=== PATIENT | female | born 1940 | race Caucasian/White ===

== ENCOUNTER 2021-09-06 16:43 | Emergency (ER) | payer MEDICARE, MEDICAID, SELFPAY ==
[2021-09-06 16:44] VITALS: BP 163/69; PULSE 87; RESP 20; TEMP 36.6; O2SAT 97; BMI 35.4
--- NOTE | 2021-09-06 17:59 | RAD_ITS ---
STUDY: XR Knee Complete 4 Views or More 09/06/2021 6:55 PM REASON FOR EXAM: Female, 80 years old. PAIN TECHNIQUE: XR Knee Complete 4 Views or More COMPARISON: None. FINDINGS: Total right knee arthroplasty. Normal visualized proximal tibia and fibula. Normal proximal tibiofibular articulation. Normal medial femorotibial compartment. Normal lateral femorotibial compartment. Normal patellofemoral articulation. The soft tissue structures are unremarkable. RAD/Knee 4 or More Views IMPRESSION: There are no acute findings. Electronically Signed: Tom Junior MD at 18:57 EST , Service support ,
--- NOTE | 2021-09-06 18:02 | EX.ED.DYSGE1 ---
HPI History of Present Illness Chief Complaint: Other, Pain/Inj Detail of Chief Complaint: Right knee pain Informant: patient Narrative Narrative: Patient presents to the emergency department with right knee pain that started 3 days ago. Patient denies any trauma. Patient states pain worse when trying to stand. Patient states that she had her knee replaced about 4 5 years ago. She denies fever or chills or sweats. Patient went to urgent care and the physician there was concerned about a septic joint so referred her to the emergency department. Patient denies any cuts to her skin or recent illness. No history of gout. Prior similar symptoms: No PFSH PFSH Medical History (Updated 09/06/21 @ 20:[address] 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 Social History Smoking Status: Former smoker ROS ROS ED Constitutional Constitutional ED: Reports systems reviewed and no addt'l complaints, except as documented; Denies body ache(s), change in weight or chills Eyes Eyes: Denies acute decrease in peripheral vision, change in vision, double vision or loss of vision ENT ENT ED: Reports none; Denies ear pain, lip swelling, loss taste/smell, neck pain, otalgia or sore throat Cardiovascular Cardiovascular: Reports none; Denies abdominal pain, chest pain with activity, leg edema, lightheadedness, palpitations, rapid heart rate or syncope Respiratory/Chest Respiratory/Chest: Reports none; Denies change in mental status, dry cough, dyspnea, hemoptysis, shortness of breath at rest or shortness of breath with exertion Gastrointestinal Gastrointestinal: Reports none; Denies abdominal pain, change in stool character, diarrhea, hematemesis, hematochezia, melena, rectal bleeding or vomiting Genitourinary Genitourinary ED: Reports none; Denies abdominal discomfort, anuria, dysuria, genital pain or polyuria Musculoskeletal Musculoskeletal: Reports none and other Details: Knee pain ; Denies arthralgias, back pain, difficulty walking, extremity pain, muscle weakness or myalgias Integumentary Reports none; Denies abscess or rash Neurologic Neurologic: Reports none; Denies abnormal gait, confusion, focal weakness, frequent falls, headache(s), loss of vision, numbness, paresthesias, radicular pain, vertigo or weakness Psychiatric Psychiatric: Reports systems reviewed and no addt'l complaints, except as documented and none; Denies behavioral changes, confusion, difficulty concentrating, hallucinations, suicidal ideation, tactile hallucinations or visual hallucinations Endocrine Endocrinology: Denies none, cold intolerance, excessive sweating, fatigue or heat intolerance Hematologic/Lymphatic Hematologic/Lymphatic: Reports none; Denies anemia, easy bleeding or easy bruising Allergic/Immunologic Allergic/Immunologic ED: Denies as per HPI, none, lip swelling, mouth swelling, throat swelling, tongue swelling or hives EXAM Physical Exam Const Vital Signs: 09/06/21 16:44 Temperature 97.8 F Temperature Source Temporal Pulse Rate 87 Respiratory Rate 20 H Blood Pressure 163/69 H Blood Pressure Mean 100 Pulse Ox 97 Oxygen Delivery Method Room Air Positive well nourished and well developed General Appearance ED: well developed and NAD HEENT Reports TM's clear and moist mucous membranes normocephalic and atraumatic; Negative for trauma or tenderness Tympanic Membrane ED: Yes TM's clear Eyes PERRL and EOMs intact bilaterally General Eye ED: Negative for pale conjunctiva or scleral icterus Neck no lymphadenopathy, supple and no JVD General: Negative for tenderness Chest Wall inspection of chest normal and palpation of chest normal Chest: Negative for tenderness Resp normal respiratory effort and clear to auscultation bilaterally Effort and Inspection: Negative for respiratory distress or pain with movement Auscultation: Negative for rhonchi, wheezes or diminished lung sounds Cardio regular rate, regular rhythm, S1 normal heart sound, S2 normal heart sound and no murmurs Peripheral Pulses: pulses 2+ throughout GI normal to inspection, nondistended, normoactive bowel sounds, soft to palpation, non-tender, non-distended and no masses Back/Spine no CVA tenderness and no thoracic nor lumbar tenderness Extremity Extremity Narrative: Evaluation of the right knee does reveal some pain with range of motion however patient is able to fully extend and flex the knee. Do not appreciate an obvious joint effusion. There is no significant erythema noted. The right knee is slightly warmer to touch than the left knee however the patient states this is normal for her. Neurovascular intact distally. No ropes or cords palpated. Patient just generally diffusely tender about the knee and the posterior aspect of her knee. General Extremety ED: Negative for edema General Extremity: Negative for edema Neuro oriented x3, CN's II-XII intact bilaterally, no sensory deficits noted and gait normal Sensorium / Orientation: awake, alert, oriented to person, oriented to place and oriented to time Motor Exam: strength 5/5 throughout and strength abnormal Psych mental status grossly normal Skin no rashes or lesions noted and no wounds MDM MDM MDM Narrative Medical decision making narrative: IV line established on arrival. Blood work obtained showed a normal white blood cell count with a slightly elevated sed rate and a slightly elevated C-reactive protein of 154. Venous Dopplers of the right lower extremity were negative for DVT. Patient also had x-rays that did not show anything acute. I did discuss case with orthopedic surgeon on-call Dr. Garza regarding potentially doing an arthrocentesis although I had concerns in this patient who has a normal white blood cell count and no fever without other signs of infection. Dr. Garza was in agreement that at this point it would be reasonable to just have her follow-up in the office and they can reevaluate the joint. He does not feel that an arthrocentesis is indicated at this time. Patient was advised to return if fever, increased redness and swelling, or condition should worsen anyway. Patient will be given a prescription for [place] for pain. Lab Data Attestation: I reviewed the patient's lab results. Labs: Laboratory Results - last 24 hr 09/06/21 09/06/21 09/06/21 18:19 18:19 19:11 WBC 8.1 RBC 4.18 L Hgb 12.9 Hct 40.4 MCV 96.7 MCH 30.9 MCHC 31.9 L RDW Std Deviation 46.8 H RDW Coeff of Jaren 13.1 Plt Count 178 MPV 10.3 Immature Gran % (Auto) 0.100 Neut % (Auto) 73.5 H Lymph % (Auto) 15.0 L [place] % (Auto) 10.1 H Eos % (Auto) 1.1 Baso % (Auto) 0.2 Absolute Neuts (auto) 6.0 Absolute Lymphs (auto) 1.22 Nucleated RBC % 0 ESR 34 H Sodium 140 Potassium 3.8 Chloride 106 Carbon Dioxide 28.0 Anion Gap 6 BUN 17 Creatinine 0.98 Estim Creat Clear Calc 39.14 Est GFR (MDRD) Af Amer 71 Est GFR (MDRD) Non-Af 58 L BUN/Creatinine Ratio 17.4 Glucose 100 Uric Acid 4.4 Calcium 9.2 C-React Prot Ext Range 154.00 H POC Glucose 95 Radiography Diagnostic Testing: Clinical Impression(s) from Imaging Studies Knee X-Ray 09/06/21 17:59 IMPRESSION: There are no acute findings. Electronically Signed: Tom Junior MD at 18:57 EST , Service support , Venous Duplex 09/06/21 18:32 IMPRESSION: There is no demonstrated deep venous thrombosis. Please see technologist report in PACS for further details for their impression/ worksheet/ details/ etc. Electronically Signed: Tom Junior MD at 19:35 EST , Service support , 4 view x-rays of the right knee obtained interpreted by myself as no acute fractures. Patient is noted to have hardware in place without any periprosthetic fractures. Radiology was in agreement. Discharge Plan Triage Chief Complaint: Other, Pain/Inj ED Provider: Shelly Travis Dx/Rx/DC Orders Clinical Impression: Acute pain of right knee Instructions: ED Knee Pain of Uncertain Cause Prescriptions: New hydrocodone-acetaminophen [hydrocodone-acetaminophen] 1 TABLET tablet 1 tab PO Q4H PRN PRN (Reason: Pain) 2 Days Qty: 10 RF: 0 No Action levothyroxine 88 mcg tablet 88 mcg PO DAILY RF: 0 pantoprazole RF: 0 Primary Care Provider: Aris Gupta Referrals: Aris Gupta MD [Primary Care Provider] - Anthony Montenegro MD [STAFF PHYSICIAN] - 1-2 Days if not improving Disposition Disposition: Home, Self Care
[2021-09-06 18:24] LABS: Absolute Lymphocyte Count 1.22 X10^3/uL (0.83-4.51); Basophil# 0.02 X10^3/uL; Basophil% 0.2 % (0-1); Eosinophil# 0.09 X10^3/uL; Eosinophils% 1.1 % (0-5); Hematocrit 40.4 % (37-47); Hemoglobin 12.9 g/dL (12.0-15.0); Lymphocyte # 1.22 X10^3/ul (0.83-4.51); Mean Corp Hgb Conc 31.9 g/dL (32-36); Mean Corpuscular Hgb 30.9 pg (27.0-32.0); Mean Corpuscular Volume 96.7 fL (81-99); Mean Platelet Vol. 10.3 fl (6.2-12.0); Monocyte# 0.82 X10^3/uL; Monocyte% 10.1 % (0-10); NRBC Flagged by Analyzer 0 % (0-5); Neutrophil # 5.96 X10^3/uL (2.7-7.7); Neutrophil % 73.5 % (47-70); Platelet Count 178 K/mm3 (150-450); RBC Distribution Width CV 13.1 % (11.6-14.6); RBC Distribution Width SD 46.8 fl (35.1-43.9); Red Blood Count 4.18 M/mm3 (4.2-5.4); White Blood Count 8.1 K/mm3 (4.4-11.0)
--- NOTE | 2021-09-06 18:32 | US_ITS ---
STUDY: VENOUS DOPPLER ULTRASOUND - RIGHT LOWER EXTREMITY REASON FOR EXAM: Female, 80 years old. LEG PAIN AND SWELLING RT KNEE PAIN TECHNIQUE: Ultrasound evaluation of the deep vein system to include alvarez-scale imaging and compression was performed. Alvarez-scale imaging and Doppler sonographic evaluation, including duplex spectral analysis and qualitative color flow sonography, was performed. COMPARISON: None. FINDINGS: Common Femoral Vein: Normal compression, spontaneity and augmentation. Normal color Doppler. Common Femoral Vein/Greater Saphenous Junction: Normal compression, spontaneity and augmentation. Normal color Doppler. Superficial Femoral Proximal: Normal compression, spontaneity and augmentation. Normal color Doppler. Superficial Femoral Middle: Normal compression, spontaneity and augmentation. Normal color Doppler. Superficial Femoral Distal: Normal compression, spontaneity and augmentation. Normal color Doppler. Popliteal Vein: Normal compression, spontaneity and augmentation. Normal color Doppler. Posterior Tibial Vein: Normal compression, spontaneity and augmentation. Normal color Doppler. Peroneal Vein: Normal compression, spontaneity and augmentation. Normal color Doppler. There is a right popliteal cyst. There is no demonstrated deep venous thrombosis. US/Venous Duplex Imag/Limited/Uni IMPRESSION: There is no demonstrated deep venous thrombosis. Please see technologist report in PACS for further details for their impression/ worksheet/ details/ etc. Electronically Signed: Tom Junior MD at 19:35 EST , Service support ,
[2021-09-06 18:36] LABS: Anion Gap 6 (5-15); BUN 17 mg/dL (7-18); BUN/Creat Ratio 17.4 RATIO (10-20); Calcium,Total 9.2 mg/dL (8.5-10.1); Chloride 106 mmol/L (98-107); Creatinine, Serum 0.98 mg/dL (0.55-1.02); EST Glomerular Filtration Rate 58 mL/min (>60); Est Glom Filt Rate - Afr Amer 71 mL/min (>60); Estimated Creatinine Clearance 39.14 ml/min; Glucose 100 mg/dL (74-106); Potassium 3.8 mmol/L (3.5-5.1); Sodium Level 140 mmol/L (136-145); Uric Acid 4.4 mg/dL (2.6-6.0)
[2021-09-06 19:12] LABS: Erythrocyte Sedimentation Rate 34 mm/hr (0-30)
[2021-09-06 19:16] LABS: Bedside Glucose 95 mg/dL (70-110)
[2021-09-06] MEDS: Ibuprofen 600 MG Tablet PO (20:01)
[2021-09-06 20:21] VITALS: BP 143/75; PULSE 90; RESP 16; O2SAT 97
== END 2021-09-06 20:22 | disposition home or self-care (01) ==
PROVIDERS: Emergency Provider Emergency Medicine; PCP Family Medicine
DX: M25.561 Pain in right knee (principal); Z96.651 Presence of right artificial knee joint; E11.9 Type 2 diabetes mellitus without complications; E78.5 Hyperlipidemia, unspecified; F32.A Depression, unspecified; F41.9 Anxiety disorder, unspecified; Z79.899 Other long term (current) drug therapy; Z87.891 Personal history of nicotine dependence
CPT/HCPCS: 73564; 80048; 82962; 84550; 85025; 85652; 86140; 93971; 99283; A4216